=== PATIENT | female | born 2005 | race Caucasian/White ===

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

== ENCOUNTER 2024-07-13 12:29 | Emergency (ER) | payer BC ==
[2024-07-13 12:35] VITALS: BP 134/81; PULSE 68; RESP 17; TEMP 97.8
--- NOTE | 2024-07-13 12:56 | ED ---
Head Injury HPI - General Chief complaint: Head Injury Stated complaint: Possible concussion, dizziness Time Seen by Provider: 07/13/24 12:37 Source: patient, RN notes reviewed Mode of arrival: ambulatory Limitations: no limitations - History of Present Illness Initial comments: This is a 18-year-old female who presents to the emergency department for a head injury. Patient plays soccer competitively and was playing soccer 4 days ago. She hit the ball with her head and did fine initially. However, the following day started to develop severe headaches, intermittent nausea, and light/sound sensitivity. She did end up playing a game the following day despite how she was feeling. She has not played since then. Denies any loss of consciousness d uring that event. Not taking any blood thinners. She was going to go see her strainer cleaner today, however they were not there. Her gymnastic coach subsequently advised she go to urgent care for evaluation. Urgent care then sent her to the emergency department. She has not tried taking anything for her headaches. Denies any history of concussions. MD Complaint: head injury - Related Data Previous Rx's Medication Instructions Recorded Ondansetron Odt [Zofran Odt] 4 mg PO Q8HR PRN #10 tab 05/03/23 Ketorolac [Toradol] 10 mg PO Q6HR PRN #15 tab 07/13/24 Ondansetron Odt [Zofran Odt] 4 mg PO Q8HR PRN #15 tab 07/13/24 Allergies/Adverse reactions: Allergies Allergy/AdvReac Type Severity Reaction Status Date / Time No Known Allergies Allergy Verified 07/13/24 12:35 Review of Systems ROS Statement: Those systems with pertinent positive or pertinent negative responses have been documented in the HPI. ROS Other: All systems not noted in ROS Statement are negative. Past Medical History Past Medical History: No Reported History History of Any Multi-Drug Resistant Organisms: None Reported Past Surgical History: No Surgical Hx Reported Past Psychological History: No Psychological Hx Reported Smoking Status: Never smoker Past Alcohol Use History: None Reported Past Drug Use History: None Reported General Exam Limitations: no limitations General appearance: alert, in no apparent distress Head exam: Present: atraumatic, normocephalic, normal inspection Eye exam: Present: normal appearance, PERRL, EOMI. Absent: scleral icterus, conjunctival injection, periorbital swelling Respiratory exam: Present: normal lung sounds bilaterally. Absent: respiratory distress, wheezes, rales, rhonchi, stridor Cardiovascular Exam: Present: regular rate, normal rhythm, normal heart sounds. Absent: systolic murmur, diastolic murmur, rubs, gallop, clicks Neurological exam: Present: alert, oriented X3, CN II-XII intact Psychiatric exam: Present: normal affect, normal mood Skin exam: Present: warm, dry, intact, normal color. Absent: rash Course Vital Signs 07/13/24 12:32 Temperature 97.8 F Pulse Rate 68 Respiratory 17 Rate Blood Pressure 134/81 O2 Sat by Pulse 100 Oximetry Medical Decision Making - Medical Decision Making This is a 18 year old female who presents to the emergency department for a head injury. Was pt. sent in by a medical professional or institution? @ -No Did you speak to anyone other than the patient for history? @ -No Did you review nursing and triage notes? @ -Yes, and I agree, it is accurate with regards to the patient's symptoms. Were old charts reviewed? @ -No Differential Diagnosis? @ -Differential Diagnosis Head Injury: Contusion, hematoma, intracranial hemorrhage, skull fracture, whiplash, concu ssion, this is not meant to be an all-inclusive list. EKG interpreted by me (3pts min.)? @ -Not obtained X-rays interpreted by me (1pt min.)? @ -Not obtained CT interpreted by me (1pt min.)? @ -CT scan of the brain obtained. My interpretation identifies no evidence of an acute intracranial hemorrhage. U/S interpreted by me (1pt. min.)? @ -Not obtained What testing was considered but not performed? (CT, X-rays, U/S, labs)? Why? @ -None What meds were considered but not given? Why? @ -None Did you discuss the management of the patient with other professionals? @ -No Did you reconcile home meds? @ -No Was smoking cessation discussed for >3mins.? @ -No Was critical care preformed (if so, how long)? @ -No Were there social determinants of health that impacted care today? How? (Homelessness, low income, unemployed, alcoholism, drug addiction, transportation, low edu. Level, literacy, decrease access to med. care, alf, rehab)? @ -No Was there de-escalation of care discussed even if they declined? (Discuss DNR or withdrawal of care, Hospice)? @ -No What co-morbidities impacted this encounter? (DM, HTN, Smoking, COPD, CAD, Cancer, CVA, Hep., AIDS, mental health diagnosis, sleep apnea, morbid obesity)? @ -None Was patient admitted / discharged? @ -Discharged. Patient inquired about a possible concussion. Advised that this is a clinical diagnosis based on a combination of patient's symptoms and physical examination findings. There is not one specific test where we can diagnose her with this. Advised this will likely need to be done by her primary care provider and with her strainer cleaner. There is concern about being medically cleared otherwise if she did not have any imaging done to rule out any kind of traumatic process such as an intracranial hemorrhage. CT scan was subsequently performed revealing no acute intracranial abnormalities. Toradol and Decadron administered for her headache. Prescription for Toradol and Zofran provided for further symptomatic management. Advised she avoid participating in athletics until she is cleared by her strainer cleaner or her primary care provider due to risk for second impact syndrome. Patient expresses understanding. Patient discharged home in stable condition. Case discussed with ED attending Dr. Glass. Return precautions reviewed in depth, the patient is instructed to return to the emergency department with any new, worsening, or concerning symptoms. Patient verbalized understanding. Undiagnosed new problem with uncertain prognosis? @ -None Drug Therapy requiring intensive monitoring for toxicity (Heparin, Nitro, Insulin, Cardizem)? @ -None Were any procedures done? @ -None Diagnosis/symptom? @ -Head injury Acute, or Chronic, or Acute on Chronic? @ -Acute Uncomplicated (without systemic symptoms) or Complicated (systemic symptoms)? @ -Uncomplicated Side effects of treatment? @ -None Exacerbation, Progression, or Severe Exacerbation] @ -Not applicable Poses a threat to life or bodily function? @ -No - Radiology Data Radiology results: report reviewed, image reviewed Disposition Clinical Impression: Closed head injury Disposition: HOME SELF-CARE Instructions (If sedation given, give patient instructions): Head Injury (ED), Sports Concussion (ED) Additional Instructions: Return to the emergency department with any new, worsening, or concerning symptoms. Take the Toradol with Tylenol as needed for pain relief. If you choose to take the Toradol, do not take any other anti-inflammatories such as ibuprofen, take one or the other. You can take the Zofran up to every 8 hours as needed for nausea and vomiting. Avoid returning to sports or athletics until cleared by your primary care provider and strainer cleaner. Follow up with your primary care provider in 1-2 days. Prescriptions: Ketorolac [Toradol] 10 mg PO Q6HR PRN #15 tab PRN Reason: Pain Ondansetron Odt [Zofran Odt] 4 mg PO Q8HR PRN #15 tab PRN Reason: Nausea And Vomiting Is patient prescribed a controlled substance at d/c from ED?: No Referrals: Luis Eduardo Ferraro DO [Primary Care Provider] - 1-2 days Time of Disposition: 14:06
--- NOTE | 2024-07-13 13:23 | CT ---
EXAMINATION TYPE: CT brain wo con DATE OF EXAM: 07/13/2024 COMPARISON: None HISTORY: 18-year-old female pain after HEAD INJURY, POSSIBLE CONCUSSION TECHNIQUE: Examination was done in axial plane without intravenous contrast. Coronal and sagittal r econstructions performed. CT DLP: 1095.7 mGycm Automated exposure control for dose reduction was used. FINDINGS: There is no evidence of acute intracranial hemorrhage, acute ischemic changes, mass, mass-effect, or extra-axial fluid collection. There is no effacement of cerebral sulci or basal subarachnoid cister ns. There is no hydrocephalus. There is no midline shift. Lucia-white matter distinction is preserv ed. Paranasal sinuses and mastoid air cells well pneumatized. Orbits and globes are intact. IMPRESSION: No acute intracranial abnormality seen. [facility], Workstation: [email or web address], 07/13/2024 1:21 PM
[2024-07-13] MEDS: KETOROLAC 15 MG/ML 1 ML VIAL IM STA (13:48)
[2024-07-13] MEDS: DEXAMETHASONE SOD PHOSPHATE 10 MG/ML 1 ML VIAL IM STA (13:48)
== END 2024-07-13 14:28 | disposition home or self-care (01) ==
LOC: EC 12:29
DX: S06.0X0A Concussion without loss of consciousness, initial encounter
CPT/HCPCS: 70450; 96372; 99283